=== PATIENT | male | born 1995 | race Caucasian/White ===

== ENCOUNTER 2019-02-06 09:17 | Emergency (ER) | payer SELFPAY ==
[~2019-02-06] VITALS: Ht 185.4 cm; Wt 71.7 kg
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
== END 2019-02-06 12:35 | disposition home or self-care (01) ==
LOC: ER 09:17
DX: S16.1XXA Strain of muscle, fascia and tendon at neck level, initial encounter (principal); V43.52XA Car driver injured in collision with other type car in traffic accident, initial encounter; Y92.488 Other paved roadways as the place of occurrence of the external cause
CPT/HCPCS: 72040; 99283